=== PATIENT | female | born 1990 | race Caucasian/White ===

== ENCOUNTER 2016-11-23 06:46 | Emergency (ER) | payer OTHER ==
[2016-11-23] MEDS ORDERED: IBUPROFEN 600 MG TABLET PO STA (07:49)
[2016-11-23] MEDS ORDERED: METHOCARBAMOL 500 MG TABLET PO STA (07:49)
[2016-11-23] MEDS ORDERED: HYDROcod/ACETAM 5/325 MG TABLET PO STA (07:49)
[2016-11-23] MEDS ORDERED: HYDROcod/ACETAM 5/325 MG TABLET ONE (07:55)
[2016-11-23] MEDS ORDERED: METHOCARBAMOL 500 MG TABLET PO ONE (07:55)
[2016-11-23] MEDS ORDERED: IBUPROFEN 600 MG TABLET PO ONE (07:56)
== END 2016-11-23 08:53 | disposition home or self-care (01) ==
DX: S39.012A Strain of muscle, fascia and tendon of lower back, initial encounter (principal); X58.XXXA Exposure to other specified factors, initial encounter
CPT/HCPCS: 81003; 81025; 99283; A9270

== ENCOUNTER 2017-07-02 13:00 | Outpatient (CLI) | payer OTHER ==
[2017-07-02 12:53] LABS: BASOPHILS % (AUTO) 0.3 %; EOSINOPHILS % (AUTO) 0.7 %; HCT - HEMATOCRIT 37.3 % (37.0-47.0); HGB - HEMOGLOBIN 12.5 g/dL (12.0-16.0); LYMPHOCYTES # (AUTO) 2.2 10^3/uL (1.5-3.5); LYMPHOCYTES % (AUTO) 30.2 %; MEAN CORPUSCULAR HGB CONC 33.6 g/dL (32.0-36.0); MEAN CORPUSCULAR VOLUME 86.2 fL (81.0-99.0); MEAN PLATELET VOLUME 10.3 fL (7.9-10.8); MONOCYTES # (AUTO) 0.4 10^3/uL (0.0-1.0); MONOCYTES % (AUTO) 5.5 %; NEUTROPHILS # (AUTO) 4.6 10^3/uL (1.5-6.6); NEUTROPHILS % (AUTO) 63.3 %; RED BLOOD COUNT 4.33 10^6/uL (4.20-5.40); RED CELL DISTRIBUTION WIDTH 12.8 % (12.0-15.0); UNCORRECTED WHITE BLOOD COUNT 7.3 x10^3/uL; WHITE BLOOD COUNT 7.3 x10^3/uL (4.8-10.8)
[2017-07-02 13:23] LABS: ALBUMIN/GLOBULIN RATIO 1.2 (1.0-2.2); BILIRUBIN,TOTAL 0.5 mg/dL (0.2-1.0); BUN - BLOOD UREA NITROGEN 13 mg/dL (6-20); CALCIUM 9.2 mg/dL (8.5-10.3); CARBON DIOXIDE - CO2 25 mmol/L (21-32); CHLORIDE 105 mmol/L (101-111); CHOL/HDL RATIO 3.8 (<4.4); CHOLESTEROL 191 mg/dL; CREATININE 0.6 mg/dL (0.4-1.0); GFR - MDRD 122 (>89); GLUCOSE 88 mg/dL (70-100); HDL CHOLESTEROL 50 mg/dL; LDL/HDL RATIO 2.5 (<4.4); SODIUM 137 mmol/L (135-145); TOTAL PROTEIN 7.5 g/dL (6.7-8.2); TRIGLYCERIDES 88 mg/dL; VLDL CHOLESTEROL 18 mg/dL
== END 2017-07-02 13:01 | disposition home or self-care (01) ==
LOC: LAB.WCP 13:00
PROVIDERS: ATTEND Physician Assistant Medical
DX: Z00.00 Encounter for general adult medical examination without abnormal findings (principal)
CPT/HCPCS: 36415; 80053; 80061; 84443; 85025

== ENCOUNTER 2019-03-24 15:47 | Emergency (ER) | payer OTHER ==
--- NOTE | 2019-03-24 16:01 | ED Physician Documentation ---
PD HPI SYNCOPE - Stated complaint Stated Complaint: FEELING FATIGUED - Chief complaint Chief Complaint: General - History obtained from History obtained from: Patient - History of Present Illness Witnessed: Unwitnessed Timing - onset: How many days ago (She has felt fatigued and has a feeling of dyspnea with activity for the last 3 to 4 days. She is feeling lightheaded today. She did not have any vomiting or diarrhea. She is had a slight sore throat. She denies any fevers. She has not had any headache. Her last menstrual period was a week ago and normal for her without any excess bleeding. She has had had a flareup of her irritable bowel with some diarrhea but denies any blood in her stool.) Preceding symptoms: No: Headache, Chest pain, Abdominal pain Associated symptoms: No: Seizure, Incontinant of urine Contributing factors: Decreased PO intake (somewhat less the past 1-2 days), Jus t stood up (she had low BP and feeling of near syncope just coming to ER and this morning walking around.), Other (has had some diarrhea and abd cramps c/w IBS the past few days). No: Recent med change, Noxious stimulae Injury occurred: No: Fell, Head injury Similar symptoms before: Has not had sx before Recently seen: Not recently seen Review of Systems Constitutional: reports: Fatigue. denies: Fever, Chills, Myalgias, Weight Loss Nose: denies: Rhinorrhea / runny nose, Congestion Throat: reports: Sore throat Respiratory: denies: Cough GI: reports: Nausea, Diarrhea (for few days, without blood). denies: Abdominal Pain, Vomiting : denies: Dysuria, Frequency Skin: denies: Rash Neurologic: reports: Generalized weakness. denies: Focal weakness, Numbness, Altered mental status, Headache PD PAST MEDICAL HISTORY - Past Medical History Respiratory: Pneumonia GI: Other - Past Surgical History Past Surgical History: Yes General: Appendectomy - Present Medications Home Medications: Ambulatory Orders Medication Instructions Recorded Confirmed Cetirizine [ZyrTEC] 10 mg PO DAILY 11/23/16 11/23/16 Hydrocodone/Acetaminophen [[place] 1 each PO Q6H PRN #20 tablet 11/23/16 5-325 Tablet] Ibuprofen [Motrin] 600 mg PO TID #20 tab 11/23/16 Methocarbamol [Robaxin] 500 mg PO Q6H PRN #25 tablet 11/23/16 Norgestimate-Ethinyl Estradiol 1 tab PO DAILY 11/23/16 11/23/16 [Mononessa 28 Tablet] dexAMETHasone [Decadron] 4 mg PO DAILY #5 tablet 03/24/19 - Allergies Allergies/Adverse Reactions: Allergies Allergy/AdvReac Type Severity Reaction Status Date / Time codeine Allergy Unknown Verified 03/25/19 07:55 methocarbamol [From Robaxin] Allergy Unknown Verified 03/25/19 07:55 Penicillins AdvReac Hallucinati Verified 11/23/16 07:04 ons Sulfa (Sulfonamide AdvReac Hallucinati Verified 11/23/16 07:03 Antibiotics) ons - Social History Does the pt smoke?: No Smoking Status: Never smoker Does the pt drink ETOH?: No Does the pt have substance abuse?: No - Immunizations Immunizations are current?: Yes PD ED PE NORMAL - Vitals Vital signs reviewed: Yes - General General: Alert and oriented X 3, No acute distress, Well developed/nourished, Other (appears pale) - HEENT HEENT: Ears normal, Moist mucous membranes. No: Pharynx benign (tonsils with some redness and has tonsillar stones on right.) - Neck Neck: Supple, no meningeal sign, Other (some anterior adenopathy on neck) - Cardiac Cardiac: RRR, No murmur - Respiratory Respiratory: Clear bilaterally - Abdomen Abdomen: Normal bowel sounds, Soft, Non tender, Non distended - Female Female : Deferred - Rectal Rectal: Deferred - Back Back: No CVA TTP - Derm Derm: Warm and dry. No: Normal color (pale) - Extremities Extremities: No tenderness to palpate, Normal ROM s pain, No edema, No calf tenderness / cord - Neuro Neuro: Alert and oriented X 3, No motor deficit, Normal speech Eye Opening: Spontaneous Motor: Obeys Commands Verbal: Oriented GCS Score: 15 Results - Vitals Vitals: Oxygen O2 Source Room air - Labs Labs: Microbiology 03/24/19 16:29 Group A Strep Throat Culture - Preliminary Throat CULTURE IN PROGRESS. RESULTS TO FOLLOW. Laboratory Tests 03/24/19 03/24/19 03/24/19 16:05 16:05 16:29 WBC RBC Hgb Hct MCV MCH MCHC RDW Plt Count MPV Neut # (Auto) Lymph # (Auto) Walsh # (Auto) Eos # (Auto) Baso # (Auto) Absolute Nucleated RBC Nucleated RBC % D-Dimer Sodium Potassium Chloride Carbon Dioxide Anion Gap BUN Creatinine Estimated GFR (MDRD) Glucose Lactic Acid Calcium Total Bilirubin AST ALT Alkaline Phosphatase Total Protein Albumin Globulin Albumin/Globulin Ratio Lipase TSH Urine Color YELLOW Urine Clarity CLEAR Urine pH 7.5 Ur Specific Lucien 1.010 1.010 Urine Protein NEGATIVE Urine Glucose (UA) NEGATIVE Urine Ketones NEGATIVE Urine Occult Blood SMALL H Urine Nitrite NEGATIVE Urine Bilirubin NEGATIVE Urine Urobilinogen 0.2 (NORMAL) Ur Leukocyte Esterase NEGATIVE Urine RBC 0-5 Urine WBC 0-3 Ur Squamous Epith Cells MOD Squamous H Urine Bacteria Rare Ur Microscopic Review INDICATED Urine Culture Comments NOT INDICATED Urine HCG, Qual NEGATIVE Infectious Walsh Assay Group A Strep Rapid Negative Blood Type Antibody Screen 03/24/19 03/24/19 03/24/19 17:02 17:02 17:02 WBC 12.8 H RBC 4.66 Hgb 13.2 Hct 39.5 MCV 84.8 MCH 28.3 MCHC 33.4 RDW 12.1 Plt Count 208 MPV 11.2 H Neut # (Auto) 10.1 H Lymph # (Auto) 1.2 L Walsh # (Auto) 1.4 H Eos # (Auto) 0.0 Baso # (Auto) 0.0 Absolute Nucleated RBC 0.00 Nucleated RBC % 0.0 D-Dimer Sodium 135 Potassium 3.3 L Chloride 103 Carbon Dioxide 21 Anion Gap 11.0 BUN 8 Creatinine 0.7 Estimated GFR (MDRD) 100 Glucose 103 H Lactic Acid Calcium 9.3 Total Bilirubin 0.7 AST 19 ALT 16 Alkaline Phosphatase 59 Total Protein 8.2 Albumin 4.2 Globulin 4.0 Albumin/Globulin Ratio 1.1 Lipase 25 TSH Urine Color Urine Clarity Urine pH Ur Specific Lucien Urine Protein Urine Glucose (UA) Urine Ketones Urine Occult Blood Urine Nitrite Urine Bilirubin Urine Urobilinogen Ur Leukocyte Esterase Urine RBC Urine WBC Ur Squamous Epith Cells Urine Bacteria Ur Microscopic Review Urine Culture Comments Urine HCG, Qual Infectious Walsh Assay Group A Strep Rapid Blood Type A POSITIVE Antibody Screen NEGATIVE 03/24/19 03/24/19 03/24/19 17:02 17:02 17:02 WBC RBC Hgb Hct MCV MCH MCHC RDW Plt Count MPV Neut # (Auto) Lymph # (Auto) Walsh # (Auto) Eos # (Auto) Baso # (Auto) Absolute Nucleated RBC Nucleated RBC % D-Dimer 250.1 Sodium Potassium Chloride Carbon Dioxide Anion Gap BUN Creatinine Estimated GFR (MDRD) Glucose Lactic Acid 0.9 Calcium Total Bilirubin AST ALT Alkaline Phosphatase Total Protein Albumin Globulin Albumin/Globulin Ratio Lipase TSH 1.03 Urine Color Urine Clarity Urine pH Ur Specific Lucien Urine Protein Urine Glucose (UA) Urine Ketones Urine Occult Blood Urine Nitrite Urine Bilirubin Urine Urobilinogen Ur Leukocyte Esterase Urine RBC Urine WBC Ur Squamous Epith Cells Urine Bacteria Ur Microscopic Review Urine Culture Comments Urine HCG, Qual Infectious Walsh Assay Group A Strep Rapid Blood Type Antibody Screen 03/24/19 17:02 WBC RBC Hgb Hct MCV MCH MCHC RDW Plt Count MPV Neut # (Auto) Lymph # (Auto) Walsh # (Auto) Eos # (Auto) Baso # (Auto) Absolute Nucleated RBC Nucleated RBC % D-Dimer Sodium Potassium Chloride Carbon Dioxide Anion Gap BUN Creatinine Estimated GFR (MDRD) Glucose Lactic Acid Calcium Total Bilirubin AST ALT Alkaline Phosphatase Total Protein Albumin Globulin Albumin/Globulin Ratio Lipase TSH Urine Color Urine Clarity Urine pH Ur Specific Lucien Urine Protein Urine Glucose (UA) Urine Ketones Urine Occult Blood Urine Nitrite Urine Bilirubin Urine Urobilinogen Ur Leukocyte Esterase Urine RBC Urine WBC Ur Squamous Epith Cells Urine Bacteria Ur Microscopic Review Urine Culture Comments Urine HCG, Qual Infectious Walsh Assay NEGATIVE Group A Strep Rapid Blood Type Antibody Screen PD MEDICAL DECISION MAKING - ED course Complexity details: reviewed results (no obvious cause to her symtpoms and her transient hypotension. Presume viral illness at this time, given some adenopathy and sore throat, but also contribution from the moderate diarrhea and IBS with less intake. ), considered differential, d/w patient Departure - Departure Disposition: 01 Home, Self Care Clinical Impression: Near syncope Fatigue Qualifiers: Fatigue type: unspecified Qualified Code(s): R53.83 - Other fatigue IBS (irritable bowel syndrome) Qualifiers: Irritable bowel syndrome type: with diarrhea Qualified Code(s): K58.0 - Irritable bowel syndrome with diarrhea Condition: Stable Record reviewed to determine appropriate education?: Yes Instructions: ED IBS, ED Weakness [facility] Follow-Up: Clotilde Garcia PA-C [Primary Care Provider] - Prescriptions: dexAMETHasone [Decadron] 4 mg PO DAILY #5 tablet Comments: Your blood tests and x-ray are normal here. I do not identify a serious cause of your symptoms. Presumably there may be some viral illness going on to account for some of the trouble breathing and general weakness. It does not sound like your IBS is given you enough diarrhea to be that dehydrated. Stay well-hydrated and drink lots of fluids. Continue the Imodium for diarrhea if needed. I would suggest adding Decadron steroid for inflammation of the airways. This may be accounting for the feeling of trouble breathing in the anti-inflammatory could help that. Recheck if not improved over the next few days. Forms: Activity restrictions Discharge Date/Time: 03/24/19 18:52
[2019-03-24 16:24] LABS: BILIRUBIN,URINE NEGATIVE (NEGATIVE); GLUCOSE, URINE (UA) NEGATIVE (NEGATIVE); KETONES,URINE (UA) NEGATIVE (NEGATIVE); LEUKOCYTE ESTERASE, URINE NEGATIVE (NEGATIVE); NITRITE,URINE NEGATIVE (NEGATIVE); OCCULT BLOOD,URINE SMALL (NEGATIVE); PH,URINE 7.5 PH (5.0-7.5); PROTEIN,URINE NEGATIVE (NEGATIVE); UROBILINOGEN,URINE 0.2 (NORMAL) E.U./dL (NORMAL)
[2019-03-24] MEDS ORDERED: SODIUM CHLORIDE 0.9% 1,000 ML IV ONE (16:39)
[2019-03-24 16:46] LABS: CLARITY,URINE CLEAR (CLEAR)
[2019-03-24 16:47] LABS: BACTERIA,URINE Rare /HPF (None Seen); RBC,URINE 0-5 /HPF (0-5); SQUAMOUS EPITHELIAL CELL,UR MOD Squamous (<= Few)
[2019-03-24 17:00] LABS: HCG UR QUAL NEGATIVE
[2019-03-24] MEDS: ONDANSETRON 4 MG/2 ML VIAL IVP STA ×2 (17:00→18:49)
--- NOTE | 2019-03-24 17:06 | XRAY Report ---
Reason: dyspnea Procedure Date: 03/24/2019 Accession Number: [id number] / [id number] Procedure: XR - Chest 1 View X-Ray CPT Code: 53723 FULL RESULT: EXAM: CHEST RADIOGRAPHY EXAM DATE: 03/24/2019 04:54 PM. CLINICAL HISTORY: Dyspnea. COMPARISON: None. TECHNIQUE: 1 view. FINDINGS: Lungs/Pleura: No focal opacities evident. No pleural effusion. No pneumothorax. Mediastinum: Within exam limitations, the cardiomediastinal contour is normal. Other: None. IMPRESSION: No acute findings. RADIA
[2019-03-24 17:13] LABS: BASOPHILS % (AUTO) 0.2 %; HGB - HEMOGLOBIN 13.2 g/dL (12.0-16.0); LYMPHOCYTES # (AUTO) 1.2 10^3/uL (1.5-3.5); LYMPHOCYTES % (AUTO) 9.1 %; MEAN CORPUSCULAR HEMOGLOBIN 28.3 pg (27.0-31.0); MEAN CORPUSCULAR HGB CONC 33.4 g/dL (32.0-36.0); MEAN CORPUSCULAR VOLUME 84.8 fL (81.0-99.0); MEAN PLATELET VOLUME 11.2 fL (7.9-10.8); MONOCYTES # (AUTO) 1.4 10^3/uL (0.0-1.0); MONOCYTES % (AUTO) 11.1 %; NEUTROPHILS # (AUTO) 10.1 10^3/uL (1.5-6.6); NEUTROPHILS % (AUTO) 79.1 %; PLT - PLATELET COUNT 208 10^3/uL (130-450); RED BLOOD COUNT 4.66 10^6/uL (4.20-5.40); RED CELL DISTRIBUTION WIDTH 12.1 % (12.0-15.0); WHITE BLOOD COUNT 12.8 x10^3/uL (4.8-10.8)
[2019-03-24 17:26] LABS: ALBUMIN 4.2 g/dL (3.2-5.5); ALBUMIN/GLOBULIN RATIO 1.1 (1.0-2.2); BILIRUBIN,TOTAL 0.7 mg/dL (0.2-1.0); CALCIUM 9.3 mg/dL (8.5-10.3); CREATININE 0.7 mg/dL (0.4-1.0); TOTAL PROTEIN 8.2 g/dL (6.7-8.2)
[2019-03-24] MEDS ORDERED: DEXAMETHASONE 10 MG/ML VIAL IVP STA (18:29)
[2019-03-24 18:45] VITALS: BP 119/76
== END 2019-03-24 18:52 | disposition home or self-care (01) ==
LOC: ED 15:47
DX: R55 Syncope and collapse (principal); R53.83 Other fatigue; K58.0 Irritable bowel syndrome with diarrhea; R59.0 Localized enlarged lymph nodes; J02.9 Acute pharyngitis, unspecified; I95.9 Hypotension, unspecified
CPT/HCPCS: 36415; 71045; 80053; 81001; 81003; 81025; 83605; 83690; 84443; 85025; 85379; 86308; 86850; 86900; 86901; 87070; 87086; 87430; 96360; 99283; 99284

== ENCOUNTER 2019-05-18 08:00 | Outpatient (CLI) | payer OTHER ==
[2019-05-18 21:10] LABS: CANDIDA GROUP DNA NEGATIVE (NEGATIVE); CANDIDA KRUSEI DNA NEGATIVE (NEGATIVE); TRICHOMONAS VAGINALIS DNA NEGATIVE (NEGATIVE)
== END 2019-05-18 23:59 | disposition home or self-care (01) ==
LOC: LAB.R 08:00
PROVIDERS: ATTEND Nurse Practitioner Obstetrics & Gynecology
DX: R10.2 Pelvic and perineal pain (principal)
CPT/HCPCS: 87661; 87801

== ENCOUNTER 2022-11-12 10:04 | Outpatient (CLI) | payer OTHER ==
--- NOTE | 2022-11-12 13:24 | Ultrasound Report ---
PROCEDURE: Pelvic w/Transvaginal INDICATIONS: PELVIC PAIN TECHNIQUE: Real-time scanning was performed of the pelvic organs, with image documentation. Additional endovagi nal scanning was necessary due to incomplete visualization of the adnexal and endometrial structures by transabdominal scanning. COMPARISON: None. FINDINGS: Uterus: Uterus is anteverted and normal in size at 7.5 x 2.9 x 5.0 cm. The myometrium is heterogene ous. The endometrium measures 3.9 mm in combined thickness. There are numerable 2 small fibroids no fabian. There is a posterior body submucosal fibroid measuring 0.9 x 0.9 x 0.9 cm. There is a subserosal posterior fibroid measuring 0.4 x 0.4 x 0.5 cm. Ovaries: The right ovary measures 2.7 x 1.8 x 1.5 cm, with a calculated ovarian volume of 3.8 cc. T he left ovary measures 3.0 x 1.2 x 1.6 cm, with a calculated ovarian volume of 3.0 cc. The ovaries h ave a normal sonographic appearance. Less than 12 follicles can be seen in each ovary. No adnexal m asses are seen. Other: No pathologic free abdominal or pelvic fluid. IMPRESSION: 1. Small uterine fibroids, one of which has a submucosal component. 2. Unremarkable ovaries. Otherwise unremarkable. Reviewed by: Prince Valadez MD on 11/12/2022 1:23 PM PST Approved by: Prince Valadez MD on 11/12/2022 1:23 PM PST Station ID: [id number]
== END 2022-11-12 10:05 | disposition home or self-care (01) ==
LOC: DI 10:04
PROVIDERS: ATTEND Nurse Practitioner
DX: D25.0 Submucous leiomyoma of uterus (principal); D25.2 Subserosal leiomyoma of uterus

== ENCOUNTER 2023-06-06 07:24 | Outpatient (CLI) | payer OTHER ==
--- NOTE | 2023-06-06 17:09 | Ultrasound Report ---
PROCEDURE: Pelvic w/Transvaginal INDICATIONS: PELVIC PAIN TECHNIQUE: Real-time scanning was performed of the pelvic organs, with image documentation. Additional endovagi nal scanning was necessary due to incomplete visualization of the adnexal and endometrial structures by transabdominal scanning. COMPARISON: Pelvic ultrasound 11/12/2022 FINDINGS: Uterus: Uterus is anteverted and normal in size at 7.0 x 3.4 x 4.5 cm. The myometrium is heterogene ous. The endometrium measures 3 mm in combined thickness. Within the mid posterior submucosal and s ubserosal regions of there are foci of heterogeneous echogenicity. The 4 measures 11 x 10 x 9 mm comp ared to 9 x 9 x 9 mm and the latter measures 6 x 4 x 3 mm compared to 4 x 4 x 5 mm. Ovaries: The right ovary measures 1.9 x 1.6 x 1.2 cm, with a calculated ovarian volume of 2.0 cc. T he left ovary measures 1.7 x 2.0 x 2.0 cm, with a calculated ovarian volume of 3.6 cc. The ovaries h ave a normal sonographic appearance. Less than 12 follicles can be seen in each ovary. No adnexal m asses are seen. No cystic lesions measuring greater than 3 cm. Other: No pathologic free abdominal or pelvic fluid. IMPRESSION: Slight increased size of uterine fibroids. Reviewed by: Lalitha Pulido MD on 06/06/2023 5:08 PM PDT Approved by: Lalitha Pulido MD on 06/06/2023 5:08 PM PDT Station ID: [id number]
== END 2023-06-06 07:25 | disposition home or self-care (01) ==
LOC: DI 07:24
PROVIDERS: ATTEND Obstetrics & Gynecology
DX: R10.2 Pelvic and perineal pain (principal); D25.0 Submucous leiomyoma of uterus; D25.2 Subserosal leiomyoma of uterus

== ENCOUNTER 2023-06-12 09:01 | Outpatient (CLI) | payer OTHER ==
[2023-06-12 12:02] LABS: BASOPHILS % (AUTO) 0.7 %; EOSINOPHILS % (AUTO) 0.6 %; HCT - HEMATOCRIT 40.4 % (37.0-47.0); HGB - HEMOGLOBIN 13.3 g/dL (12.0-16.0); LYMPHOCYTES # (AUTO) 1.8 10^3/uL (1.5-3.5); LYMPHOCYTES % (AUTO) 33.5 %; MEAN CORPUSCULAR HGB CONC 32.9 g/dL (32.0-36.0); MONOCYTES # (AUTO) 0.3 10^3/uL (0.0-1.0); MONOCYTES % (AUTO) 4.6 %; NEUTROPHILS # (AUTO) 3.3 10^3/uL (1.5-6.6); NEUTROPHILS % (AUTO) 60.2 %; PLT - PLATELET COUNT 255 10^3/uL (130-450); RED BLOOD COUNT 4.59 10^6/uL (4.20-5.40); RED CELL DISTRIBUTION WIDTH 12.2 % (12.0-15.0); WHITE BLOOD COUNT 5.4 x10^3/uL (4.8-10.8)
[2023-06-12 12:27] LABS: ALBUMIN 4.4 g/dL (3.2-5.5); ALBUMIN/GLOBULIN RATIO 1.5 (1.0-2.2); BILIRUBIN,TOTAL 0.5 mg/dL (0.2-1.0); CALCIUM 9.7 mg/dL (8.5-10.3); CREATININE 0.6 mg/dL (0.6-1.3); POTASSIUM 3.7 mmol/L (3.5-4.5); TOTAL PROTEIN 7.4 g/dL (6.4-8.9)
== END 2023-06-12 09:02 | disposition home or self-care (01) ==
LOC: LAB.N 09:01
PROVIDERS: ATTEND Physician Assistant Medical
DX: R10.31 Right lower quadrant pain (principal)
CPT/HCPCS: 36415; 80053; 83690; 85025

== ENCOUNTER 2023-06-13 06:48 | Outpatient (CLI) | payer OTHER ==
[2023-06-13] MEDS ORDERED: IOVERSOL 320 100 ML VIAL IVP ONE (09:23)
[2023-06-13] MEDS ORDERED: BARIUM SULFATE 450 ML BOTTLE PO ONE (09:23)
--- NOTE | 2023-06-13 10:29 | CT Report ---
PROCEDURE: CT of the abdomen and pelvis with IV and oral contrast. INDICATIONS: RLQ ABD PAIN CONTRAST: Opti 320 100ml TECHNIQUE: After the administration of IV and oral contrast, 5 mm thick sections acquired from the diaphragms to the symphysis. 5 mm thick coronal and sagittal reformats were acquired. For radiation dose reducti on, the following was used: automated exposure control, adjustment of mA and/or kV according to eliz ent size. COMPARISON: None FINDINGS: Image quality: Good Lower chest: Trace basal atelectasis. Heart size within normal limits. Solid organs: Right lobe liver dome 1.2 cm lesion is probably a mildly complex cyst with septations. If the patient does not have a primary history of malignancy, this is likely benign, although if ther e are risk factors or suspicious clinical history, MRI could be used for confirmation. Liver is other chatterjee unremarkable. Gallbladder is unremarkable. There is a phrygian cap. No pathologic biliary ductal dilation or pancre atic ductal dilation. No splenomegaly. No adrenal nodules. No hydronephrosis. Tiny right nonobstructi ng renal stone. Vessels and lymph nodes: No abdominal aortic aneurysm. The main portal vein appears patent. No pathol ogic lymph nodes by size criteria. Bowel and peritoneum: No evidence of small bowel obstruction. No pathologic ascites or drainable absc ess. There is a possible short nondilated appendix seen around the cecum. No significant inflammatory changes. Body wall: Small fat-containing umbilical hernia. Pelvis: Uterine fibroids better assessed on ultrasound. Bladder is unremarkable Bones: No acute or suspicious osseous finding. IMPRESSION: A possible nondilated appendix is seen. No abscess or high-grade inflammatory changes. No small bowel obstruction. No other acute abdominal pathology. Clinical followup is recommended. If there is new o r worsening clinical concern, reimaging could be obtained. Other findings as above. Reviewed by: Pramod Ken MD on 06/13/2023 10:27 AM PDT Approved by: Pramod Ken MD on 06/13/2023 10:27 AM PDT Station ID: [id number]
== END 2023-06-13 06:49 | disposition home or self-care (01) ==
LOC: DI 06:48
PROVIDERS: ATTEND Physician Assistant Medical
DX: R10.31 Right lower quadrant pain (principal)
CPT/HCPCS: 74177; A9270; Q9967

== ENCOUNTER 2024-06-17 07:05 | Outpatient (CLI) | payer OTHER ==
--- NOTE | 2024-06-17 15:26 | Ultrasound Report ---
PROCEDURE: Abdomen Limited INDICATIONS: GALLBLADDER POLYPS TECHNIQUE: Real-time focused scanning was performed of the abdomen, with image documentation. COMPARISONS: Ultrasound of abdomen dated 06/26/[address] of abdomen and pelvis dated 06/13/2023. FINDINGS: Liver: Liver is normal in size. Mildly increased liver parenchymal echotexture is seen. Simple appea ring cyst in upper portion of right hepatic lobe measures 1.2 x 0.8 x 1.6 cm in size. Gallbladder: Multiple polyps are again noted within gallbladder lumen and measures up to 3 and 3.2 mm in size and unchanged from prior study. Phrygian cap is again present. No gallbladder wall thickenin g. No gallstones. No pericholecystic fluid or sonographic Leo's sign. Biliary ducts: Intrahepatic bile ducts are non-dilated. Extrahepatic bile duct caliber measures 4.6 mm. Normal is 6-7 mm or less in diameter, or 10 mm or less post-cholecystectomy. Pancreas: Visualized portions of the pancreas are sonographically normal. Right kidney: Normal in size and echotexture. Right kidney measures 4.1 cm long. No hydronephrosis o r nephrolithiasis. No solid masses. No complex renal cystic lesions which require follow-up. IVC: Intrahepatic inferior vena cava is patent. Miscellaneous: No free abdominal fluid. IMPRESSION: 1. Stable appearing sub-5 mm polyp seen in gallbladder lumen unchanged from prior study. No sonograph ic evidence of acute cholecystitis. No biliary ductal dilatation. 2. Mild hepatic steatosis and simple appearing right hepatic lobe cyst. 3. Rest of the exam is unremarkable. Reviewed by: Issa Rodgers MD on 06/17/2024 3:25 PM PDT Approved by: Issa Rodgers MD on 06/17/2024 3:25 PM PDT Station ID: [id number]
== END 2024-06-17 07:06 | disposition home or self-care (01) ==
LOC: DI 07:05
PROVIDERS: ATTEND Surgery
DX: K82.4 Cholesterolosis of gallbladder (principal); K76.0 Fatty (change of) liver, not elsewhere classified; K76.89 Other specified diseases of liver